=== PATIENT | male | born 1970 | race Caucasian/White ===

== ENCOUNTER 2023-05-14 16:35 | Emergency (ER) | payer OTHER, SELFPAY ==
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
[2023-05-14 17:34] VITALS: BP 122/79; PULSE 91; RESP 18; TEMP 36.7; O2SAT 95
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
[2023-05-14] MEDS: IBUPROFEN 400 MG TABLET 800 MG PO (18:49)
[2023-05-14] MEDS: CYCLOBENZAPRINE HCL 10 MG TABLET PO (18:49)
[2023-05-14 20:32] VITALS: BP 135/97; PULSE 88; RESP 16; TEMP 36.7; O2SAT 99
== END 2023-05-14 21:14 | disposition home or self-care (01) ==
PROVIDERS: Emergency Provider Emergency Medicine
DX: S39.012A Strain of muscle, fascia and tendon of lower back, initial encounter (principal); M47.816 Spondylosis without myelopathy or radiculopathy, lumbar region; V49.40XA Driver injured in collision with unspecified motor vehicles in traffic accident, initial encounter
CPT/HCPCS: 72131; 99284; A9270